=== PATIENT | male | born 1965 | race Caucasian/White ===

== ENCOUNTER 2020-02-11 21:06 | Observation (INO) | payer BC ==
[2020-02-11] MEDS ORDERED: ONDANSETRON HCL INJ/PF 4 MG/2 ML SDV IV ONE (21:23)
[2020-02-11] MEDS ORDERED: MORPHINE SULFATE 10 MG/ML INJ IV ONE (21:23)
[2020-02-11] MEDS ORDERED: NORMAL SALINE 500 ML IV ONE (21:23)
--- NOTE | 2020-02-11 21:25 | ER Document Report ---
ED Medical Screen (RME) - General Chief Complaint: Abdominal Pain Stated Complaint: ABDOMINAL PAIN,FLANK PAIN Time Seen by Provider: 02/11/20 21:19 Notes: HPI: 54-year-old male presenting to the emergency department for evaluation of right lower quadrant abdominal pain. No dysuria. No penile or testicular pain. No fever has had dry heaves. Pain began around 3 AM has progressively worsened throughout the day hurts to bend at the waist hurts to walk. No history of prior abdominal surgeries. I have greeted and performed a rapid initial assessment of this patient. A comprehensive ED assessment and evaluation of the patient, analysis of test results and completion of the medical decision making process will be conducted by additional ED providers PHYSICAL EXAMINATION: GENERAL: Well-appearing, well-nourished and in mild acute distress. HEAD: Atraumatic, normocephalic. EYES: sclera anicteric, conjunctiva are normal. ENT: Moist mucous membranes. NECK: Normal range of motion LUNGS: Normal work of breathing HEART: 2+ radial pulses bilaterally ABD: limited by positioning for exam in triage. Moderate tenderness over McBurney's point with rebound, positive Rovsing, positive heel balance EXTREMITIES: no pitting or edema. No cyanosis. NEUROLOGICAL: No focal neurological deficits. Moves all extremities spontaneously and on command. PSYCH: Normal mood, normal affect. SKIN: Warm, Dry, normal turgor, no rashes or lesions noted. - Related Data Allergies/Adverse Reactions: No Known Allergies Allergy (Verified 02/11/20 21:23) Past Medical History - Social History Chew tobacco use (# tins/day): No Frequency of alcohol use: Occasional Drug Abuse: None Physical Exam - Vital signs Vitals: Temp Pulse Resp BP Pulse Ox 98.2 F 86 16 139/85 H 96 02/11/20 21:11 02/11/20 21:11 02/11/20 21:11 02/11/20 21:11 02/11/20 21:11 Course - Vital Signs Vital signs: Temp Pulse Resp BP Pulse Ox 98.2 F 86 16 139/85 H 96 02/11/20 21:11 02/11/20 21:11 02/11/20 21:11 02/11/20 21:11 02/11/20 21:11
--- NOTE | 2020-02-11 21:47 | ER Document Report ---
ED GI/ - General Chief Complaint: Abdominal Pain Stated Complaint: ABDOMINAL PAIN,FLANK PAIN Time Seen by Provider: 02/11/20 21:30 Mode of Arrival: Ambulatory Information source: Patient Notes: Patient presents complaining of abdominal pain that started around 3:00 in the morning. Patient states pain is gradually started to worsen throughout the day. Patient complains of pain to the right lower side of abdomen that radiates around to right lateral side. Patient has had some nausea. Patient reports some right flank pain and change in urinary stream. Patient does complain of some chills. Patient reports decreased appetite. - HPI Patient complains to provider of: Abdominal pain, Flank pain. No: Vomiting Onset: This morning Timing/Duration: Gradual, Worse Pain Level: 3 Location: RLQ, Right flank Sexual history: Active Associated symptoms: Chills, Loss of appetite, Nausea. denies: Diarrhea, Dizzy, Urinary hesitancy, Urinary frequency, Urinary retention Exacerbated by: Denies Relieved by: Denies Similar symptoms previously: No Recently seen / treated by doctor: No - Related Data Allergies/Adverse Reactions: No Known Allergies Allergy (Verified 02/11/20 21:23) Past Medical History - General Information source: Patient - Social History Smoking Status: Never Smoker Chew tobacco use (# tins/day): No Frequency of alcohol use: Occasional Drug Abuse: None Occupation: Special needs patients Lives with: Family Family History: Reviewed & Not Pertinent Patient has suicidal ideation: No Patient has homicidal ideation: No - Medical History Medical History: Negative Past Surgical History: Reports: Hx Orthopedic Surgery Review of Systems - Review of Systems Constitutional: Chills EENT: No symptoms reported Cardiovascular: No symptoms reported. denies: Chest pain Respiratory: No symptoms reported. denies: Cough Gastrointestinal: Abdominal pain, Nausea. denies: Diarrhea, Vomiting Genitourinary: Flank pain. denies: Dysuria, Discharge, Frequency Male Genitourinary: No symptoms reported Musculoskeletal: Back pain Skin: No symptoms reported Hematologic/Lymphatic: No symptoms reported Neurological/Psychological: No symptoms reported Physical Exam - Vital signs Vitals: Temp Pulse Resp BP Pulse Ox 98.2 F 86 16 139/85 H 96 02/11/20 21:11 02/11/20 21:11 02/11/20 21:11 02/11/20 21:11 02/11/20 21:11 - General General appearance: Appears well, Alert In distress: None - HEENT Head: Normocephalic, Atraumatic Eyes: Normal Conjunctiva: Normal Nasal: Normal Mouth/Lips: Normal Mucous membranes: Normal Neck: Normal, Supple. No: Lymphadenopathy - Respiratory Respiratory status: No respiratory distress Chest status: Nontender Breath sounds: Normal. No: Rales, Rhonchi, Stridor, Wheezing Chest palpation: Normal - Cardiovascular Rhythm: Regular Heart sounds: S1 appreciated, S2 appreciated - Abdominal Inspection: Normal Distension: No distension Bowel sounds: Normal Tenderness: Tender - Suprapubic, right lower quadrant, right middle abdominal tenderness. No: Lundberg's sign Organomegaly: No organomegaly - Back Back: CVA tenderness - Right - Extremities General upper extremity: Normal inspection, Normal ROM General lower extremity: Normal inspection, Normal ROM - Neurological Neuro grossly intact: Yes Cognition: Normal Orientation: AAOx4 [place] Coma Scale Eye Opening: Spontaneous [place] Coma Scale Verbal: Oriented [place] Coma Scale Motor: Obeys Commands Kelsey Coma Scale Total: 15 - Psychological Associated symptoms: Normal affect, Normal mood - Skin Skin Temperature: Warm Skin Moisture: Dry Skin Color: Normal Course - Re-evaluation Re-evalutation: 02/11/20 23:[address] Childers who agrees to come and evaluate patient. - Vital Signs Vital signs: Temp Pulse Resp BP Pulse Ox 98.4 F 67 18 152/72 H 95 02/12/20 00:57 02/12/20 00:57 02/12/20 00:57 02/12/20 00:57 02/12/20 00:57 - Laboratory Result Diagrams: 02/11/20 22:18 02/11/20 22:18 Laboratory results interpreted by me: 02/11/20 02/11/20 02/11/20 22:18 22:18 22:18 WBC 17.0 H Seg Neuts % (Manual) 90 H Lymphocytes % (Manual) 5 L Abs Neuts (Manual) 15.3 H Glucose 139 H Urine Protein 30 H Urine Ketones 20 H Labs- Entire Visit 02/11/20 02/11/20 02/11/20 22:18 22:18 22:18 WBC 17.0 H RBC 5.35 Hgb 15.7 Hct 46.6 MCV 87 MCH 29.4 MCHC 33.7 RDW 13.1 Plt Count 212 Lymph % (Auto) Not Reportable [place] % (Auto) Not Reportable Eos % (Auto) Not Reportable Baso % (Auto) Not Reportable Absolute Neuts (auto) Not Reportable Absolute Lymphs (auto) Not Reportable Absolute Monos (auto) Not Reportable Absolute Eos (auto) Not Reportable Absolute Basos (auto) Not Reportable Total Counted 100 Seg Neutrophils % Not Reportable Seg Neuts % (Manual) 90 H Lymphocytes % (Manual) 5 L Monocytes % (Manual) 5 Eosinophils % (Manual) 0 Basophils % (Manual) 0 Abs Neuts (Manual) 15.3 H Abs Lymphs (Manual) 0.9 Abs Monocytes (Manual) 0.9 Absolute Eos (Manual) 0.0 Abs Basophils (Manual) 0.0 Toxic Granulation SLIGHT Platelet Comment ADEQUATE Sodium 137.4 Potassium 4.3 Chloride 100 Carbon Dioxide 27 Anion Gap 10 BUN 19 Creatinine 0.92 Est GFR ( Amer) > 60 Est GFR (MDRD) Non-Af > 60 Glucose 139 H Calcium 9.4 Total Bilirubin 0.8 Direct Bilirubin 0.1 Neonat Total Bilirubin Not Reportable Neonat Direct Bilirubin Not Reportable Neonat Indirect Bili Not Reportable AST 18 ALT 26 Alkaline Phosphatase 66 Total Protein 7.8 Albumin 4.6 Lipase 51.5 Urine Color YELLOW Urine Appearance CLEAR Urine pH 5.0 Ur Specific [place] 1.026 Urine Protein 30 H Urine Glucose (UA) NEGATIVE Urine Ketones 20 H Urine Blood NEGATIVE Urine Nitrite NEGATIVE Urine Bilirubin NEGATIVE Urine Urobilinogen NEGATIVE Ur Leukocyte Esterase NEGATIVE Urine WBC (Auto) 0 Urine RBC (Auto) 1 Urine Mucus (Auto) FEW Urine Ascorbic Acid NEGATIVE - Diagnostic Test Radiology reviewed: Reports reviewed Discharge - Discharge Clinical Impression: Appendicitis Qualifiers: Appendicitis type: acute appendicitis Acute appendicitis type: unspecified acute appendicitis type Qualified Code(s): K35.80 - Unspecified acute appendicitis Abdominal pain Qualifiers: Abdominal location: unspecified location Qualified Code(s): R10.9 - Unspecified abdominal pain Condition: Stable Disposition: ADMITTED INPATIENT Admitting Provider: Surgicalist Unit Admitted: Surgical Floor
[2020-02-11 22:37] LABS: HEMATOCRIT 46.6 % (37.9-51.0); HEMOGLOBIN 15.7 g/dL (13.5-17.0); MEAN CORPUSCULAR HEMOGLOBIN 29.4 pg (27.0-33.4); MEAN CORPUSCULAR HGB CONC 33.7 g/dL (32.0-36.0); MEAN CORPUSCULAR VOLUME 87 fl (80-97); PLATELET COUNT 212 10^3/uL (150-450); RED BLOOD COUNT 5.35 10^6/uL (4.35-5.55); RED CELL DISTRIBUTION WIDTH 13.1 % (11.5-14.0)
[2020-02-11 22:42] LABS: APPEARANCE,URINE CLEAR; BILIRUBIN,URINE NEGATIVE (NEGATIVE); COLOR,URINE YELLOW; GLUCOSE, URINE NEGATIVE (NEGATIVE); KETONES,URINE 20 mg/dL (NEGATIVE); LEUKOCYTE ESTERASE,URINE NEGATIVE (NEGATIVE); NITRITE,URINE NEGATIVE (NEGATIVE); PROTEIN,URINE 30 mg/dL (NEGATIVE); URINE SPECIFIC GRAVITY 1.026; UROBILINOGEN,URINE NEGATIVE mg/dL (<2.0)
[2020-02-11 22:51] LABS: ALBUMIN 4.6 g/dL (3.5-5.0); ALKALINE PHOSPHATASE 66 U/L (38-126); ANION GAP 10 (5-19); ASPARTATE AMINO TRANSFERASE 18 U/L (17-59); BILIRUBIN,DIRECT 0.1 mg/dL (0.0-0.4); BILIRUBIN,TOTAL 0.8 mg/dL (0.2-1.3); BLOOD UREA NITROGEN 19 mg/dL (7-20); CALCIUM 9.4 mg/dL (8.4-10.2); CARBON DIOXIDE 27 mmol/L (22-30); CHLORIDE 100 mmol/L (98-107); GLUCOSE 139 mg/dL (75-110); POTASSIUM 4.3 mmol/L (3.6-5.0); TOTAL PROTEIN 7.8 g/dL (6.3-8.2)
[2020-02-11 22:55] LABS: ABSOLUTE LYMPHOCYTES# (MANUAL) 0.9 10^3/uL (0.5-4.7); ABSOLUTE MONOCYTES # (MANUAL) 0.9 10^3/uL (0.1-1.4); BASOPHILS % (MANUAL) 0 % (0-2); EOSINOPHILS % (MANUAL) 0 % (0-6); LYMPHOCYTES % (MANUAL) 5 % (13-45); MONOCYTES % (MANUAL) 5 % (3-13); SEGMENTED NEUTROPHILS % (MAN) 90 % (42-78); TOTAL CELLS COUNTED 100
[2020-02-11 22:56] LABS: PLATELET COMMENT ADEQUATE; TOXIC GRANULATION SLIGHT
--- NOTE | 2020-02-11 23:34 | RADIOLOGY REPORT (SQ) ---
EXAM DESCRIPTION: CT ABDOMEN PELVIS WITH IV CONTRAST COMPLETED DATE/TME: 02/11/2020 21:23 CLINICAL HISTORY: 54 years, Male, Pt reports sudden sharp RLQ abdominal pain to Right lower back COMPARISON: None. TECHNIQUE: Contrast enhanced CT of the abdomen/pelvis was acquired. Images were obtained after the uneventful administration of 100 mL of Omnipaque 350 intravenous contrast. Images stored on PACS. All CT scanners at this facility use dose modulation, iterative reconstruction, and/or weight based dosing when appropriate to reduce radiation dose to as low as reasonably achievable (ALARA). [facility]: Dose Right [facility]: CareDose [facility]: Dose Right [facility]: Teradose 4D [facility]: Fangcang LIMITATIONS: None. FINDINGS: Limited evaluation of the lower chest reveals bands of opacity about both lower lobes and the lingula, indicating areas of atelectasis and/or scar. The liver, spleen, pancreas, gallbladder, and both adrenal glands appear normal. Both kidneys enhance symmetrically. No hydronephrosis or hydroureter. The urinary bladder is collapsed, thus its evaluation is limited. Small and large bowel appear normal in caliber. No areas of focal wall thickening. No evidence of obstruction. The appendix is dilated and fluid-filled measuring up to 9 mm in diameter. Associated periappendiceal inflammatory stranding is noted. No adjacent drainable fluid collections are appreciated. Vascular structures opacify with contrast normally. No suspicious lymphadenopathy is appreciated. No drainable fluid collections. Bone windows show no destructive osseous lesions. IMPRESSION: Findings are consistent with acute, uncomplicated appendicitis. TECHNICAL DOCUMENTATION: Quality ID # 436: Final reports with documentation of one or more dose reduction techniques (e.g., Automated exposure control, adjustment of the mA and/or kV according to patient size, use of iterative reconstruction technique) copyright 2010 [employer]- All Rights Reserved
[2020-02-11] MEDS ORDERED: PIPERACILLIN/TAZOBACTAM 3.375 GM VIAL IV ONE (23:56)
[2020-02-12] MEDS ORDERED: BUPIVACAINE HCL 0.25 % INJ/PF (2.5 MG/1 ML) 30 ML VIAL ONE (00:58)
[2020-02-12] MEDS ORDERED: ONDANSETRON HCL INJ/PF 4 MG/2 ML SDV ONE (01:08)
[2020-02-12] MEDS ORDERED: MIDAZOLAM 2 MG/2 ML INJ ONE (01:08)
[2020-02-12] MEDS ORDERED: LIDOCAINE 2% INJ-PF (20 MG/ML) 10 ML AMPUL ONE (01:08)
[2020-02-12] MEDS ORDERED: FENTANYL CITRATE INJ/PF 100 MCG/2 ML AMPUL ONE (01:08)
[2020-02-12] MEDS ORDERED: DEXAMETHASONE SOD PHOSPHATE INJ 4 MG/1 ML VIAL ONE (01:08)
[2020-02-12] MEDS ORDERED: HYDROMORPHONE HCL INJ/PF 2 MG/ML AMPULE ONE (01:08)
[2020-02-12] MEDS ORDERED: PROPOFOL INJ 200 MG/20 ML VIAL IV ONE (01:08)
[2020-02-12] MEDS ORDERED: OXYCODONE-ACETAMINOPHEN 5-325 MG TABLET PO PRN ×2 (01:58)
[2020-02-12] MEDS ORDERED: MEPERIDINE HCL/PF INJ 25 MG/1 ML DISP.SYRIN IV PRN (01:58)
[2020-02-12] MEDS ORDERED: DIPHENHYDRAMINE HCL 50 MG/ML VIAL IV PRN (01:58)
[2020-02-12] MEDS ORDERED: MORPHINE SULFATE 10 MG/ML INJ IV PRN ×2 (01:58→02:37)
[2020-02-12] MEDS ORDERED: FENTANYL CITRATE INJ/PF 100 MCG/2 ML AMPUL IV PRN ×3 (01:58)
[2020-02-12] MEDS ORDERED: PROMETHAZINE HCL INJ 25 MG/1 ML VIAL IV PRN ×2 (01:58)
[2020-02-12] MEDS ORDERED: ONDANSETRON HCL INJ/PF 4 MG/2 ML SDV IV PRN (02:37)
[2020-02-12] MEDS ORDERED: HYDROCODONE/ACETAMINOPHEN 10-325 MG TABLET PO PRN (02:40)
--- NOTE | 2020-02-12 02:45 | Operative Report ---
Nonrecallable Operative Report DATE OF SURGERY: 02/12/20 PREOPERATIVE DIAGNOSIS: Acute appendicitis POSTOPERATIVE DIAGNOSIS: Acute nonperforated appendicitis OPERATION: Laparoscopic appendectomy SURGEON: COMFORT DE SANTIAGO ANESTHESIA: GA TISSUE REMOVED OR ALTERED: Appendix COMPLICATIONS: None apparent ESTIMATED BLOOD LOSS: Minimal PROCEDURE: Drains/implants: None. Procedure in detail: After informed consent was obtained, the patient was brought into the operating room and laid in the supine position. The area of t he abdomen was prepped and draped in a normal sterile fashion. A supraumbilical incision was created with a 15 blade scalpel. Dissection was carried through the subcutaneous tissues using sharp and blunt dissection. The cicatrix was identified, grasped with a Lobo clamp, and retracted upwards. The linea alba fascia was incised sharply, the abdomen was entered sharply. The balloon trocar was inserted, and pneumoperitoneum was achieved. A suprapubic 5 mm trocar was placed under direct laparoscopic visualization, as well as a left lower quadrant trocar. Atraumatic graspers were placed through the 5 mm ports. The appendix was identified. It was injected and inflamed, consistent with acute appendicitis. It did not appear perforated. The appendix was elevated anteriorly. The mesoappendix was taken down using the harmonic scalpel. PDS Endoloops were secured around the base of the appendix x2. The appendix was amputated and placed into an Endo Catch bag. The appendix was then pulled out through the supraumbilical port. The camera was reinserted. The right lower quadrant was inspected. It was found to be hemostatic. The appendiceal stump was found to be in good order. Once this was confirmed, the 5 mm trochars were removed under direct laparoscopic visualization. The supraumbilical trocar was removed, and pneumoperitoneum was relieved. The supraumbilical fascia was closed using 0 Vicryl suture in [id number] fashion. The overlying skin was closed using 4-0 Vicryl Rapide suture in subcuticular fashion. Dressings were placed, and the procedure was concluded. All sponge, instrument, needle counts were correct x2. Condition: Stable.
[2020-02-12] MEDS ORDERED: PIPERACILLIN/TAZOBACTAM 3.375 GM VIAL IV PRN (03:14)
[2020-02-12] MEDS ORDERED: INFLUENZA QUAD (6MOS+) 2019-20 VAC 0.5 ML SYR IM ONE (03:56)
[2020-02-12] MEDS: PIPERACILLIN SODIUM/TAZOBACTAM 3.375 GM in NORMAL SALINE 100 ML IV SCH ×2 (05:15→14:15)
--- NOTE | 2020-02-12 06:35 | PDOC H&P ---
History of Present Illness Admission Date/PCP: 02/12/20 00:03 ALEXYS VILLAREAL MD Patient complains of: Right lower quadrant pain History of Present Illness: STAR MYERS is a 54 year old male with a 1 day history of sharp, stabbing right lower quadrant pain. The pain has worsened throughout the day. Patient has had associated nausea. He denies fevers or chills. He rates his pain as 5 out of 10. Nothing makes his pain better. Palpation and movement make his pain worse. His pain does not radiate. Currently, the patient denies chest pain, shortness of breath, headache, vomiting, dizziness, orthostasis, blurry vision, rash, malaise, or fatigue. Past Medical History Medical History: None Past Surgical History Past Surgical History: Reports: Orthopedic Surgery Social History Lives with: Family Smoking Status: Never Smoker Electronic Cigarette use?: No - Advance Directive Resuscitation Status: Full Code Family History Family History: Reviewed & Not Pertinent Parental Family History Reviewed: Yes Children Family History Reviewed: Yes Sibling(s) Family History Reviewed.: Yes Medication/Allergy Allergies/Adverse Reactions: No Known Allergies Allergy (Verified 02/11/20 21:23) Review of Systems Constitutional: ABSENT: anorexia, chills, fatigue, fever(s), headache(s) Eyes: ABSENT: visual disturbances Ears: ABSENT: hearing changes Nose, Mouth, and Throat: ABSENT: mouth pain, sore throat Cardiovascular: ABSENT: chest pain Respiratory: ABSENT: cough, dyspnea Gastrointestinal: PRESENT: abdominal pain, nausea. ABSENT: bloating, constipation, diarrhea, dysphagia, heartburn, hematemesis, hematochezia, melena, vomiting Genitourinary: ABSENT: difficulty urinating Musculoskeletal: ABSENT: back pain Integumentary: ABSENT: pruritus, rash Neurological: ABSENT: confusion, convulsions, dizziness Psychiatric: ABSENT: anxiety, depression Endocrine: ABSENT: cold intolerance, heat intolerance Hematologic/Lymphatic: ABSENT: easy bleeding, easy bruising Physical Exam Vital Signs: Temp Pulse Resp BP Pulse Ox 98.4 F 88 18 152/72 H 95 02/12/20 01:08 02/12/20 01:08 02/12/20 01:08 02/12/20 01:08 02/12/20 01:08 Intake & Output 02/10/20 02/11/20 02/12/20 06:59 06:59 06:59 Weight 103.1 kg General appearance: PRESENT: no acute distress, cooperative Head exam: PRESENT: atraumatic, normocephalic Eye exam: PRESENT: EOMI, PERRLA. ABSENT: scleral icterus Mouth exam: PRESENT: moist, neck supple Neck exam: ABSENT: meningismus, tenderness, thyromegaly, tracheal deviation Respiratory exam: PRESENT: clear to auscultation em, unlabored. ABSENT: chest wall tenderness, tachypnea, wheezes Cardiovascular exam: PRESENT: RRR Pulses: PRESENT: normal radial pulses Vascular exam: PRESENT: normal capillary refill GI/Abdominal exam: PRESENT: soft. ABSENT: distended, firm, guarding, tenderness Rectal exam: PRESENT: deferred Extremities exam: ABSENT: clubbing Musculoskeletal exam: ABSENT: deformity Neurological exam: PRESENT: alert, awake, oriented to person, oriented to place, oriented to time, oriented to situation, CN II-XII grossly intact Psychiatric exam: ABSENT: agitated, anxious, depressed Focused psych exam: ABSENT: delusional Skin exam: ABSENT: cyanosis, erythema, jaundice Results Laboratory Results: 02/11/20 22:18 02/11/20 22:18 02/11/20 02/11/20 02/11/20 22:18 22:18 22:18 WBC 17.0 H RBC 5.35 Hgb 15.7 Hct 46.6 MCV 87 MCH 29.4 MCHC 33.7 RDW 13.1 Plt Count 212 Seg Neutrophils % Not Reportable Sodium 137.4 Potassium 4.3 Chloride 100 Carbon Dioxide 27 Anion Gap 10 BUN 19 Creatinine 0.92 Est GFR ( Amer) > 60 Glucose 139 H Calcium 9.4 Total Bilirubin 0.8 AST 18 Alkaline Phosphatase 66 Total Protein 7.8 Albumin 4.6 Lipase 51.5 Urine Color YELLOW Urine Appearance CLEAR Urine pH 5.0 Ur Specific [place] 1.026 Urine Protein 30 H Urine Glucose (UA) NEGATIVE Urine Ketones 20 H Urine Blood NEGATIVE Urine Nitrite NEGATIVE Ur Leukocyte Esterase NEGATIVE Urine WBC (Auto) 0 Urine RBC (Auto) 1 Impressions: Abdomen/Pelvis CT 02/11/20 21:23 IMPRESSION: Findings are consistent with acute, uncomplicated appendicitis. TECHNICAL DOCUMENTATION: Quality ID # 436: Final reports with documentation of one or more dose reduction techniques (e.g., Automated exposure control, adjustment of the mA and/or kV according to patient size, use of iterative reconstruction technique) copyright 2011 [employer]- All Rights Reserved Assessment & Plan - Diagnosis (1) Appendicitis Qualifiers: Appendicitis type: acute appendicitis Acute appendicitis type: unspecified acute appendicitis type Qualified Code(s): K35.80 - Unspecified acute [place]ver[place] endicitis Is this a current diagnosis for this admission?: Yes - Plan Summary Plan Summary: This is a 54-year-old male with right lower quadrant pain, leukocytosis, and a CT scan consistent with appendicitis. The patient does have significant discomfort on physical examination. I have recommended appendectomy as definitive surgical treatment. The patient has agreed with this. Risks/benefits discussed, informed consent obtained, and all questions answered.
[2020-02-12] MEDS: IBUPROFEN 800 MG TABLET PO SCH ×2 (08:21→14:15)
[2020-02-12] MEDS ORDERED: NEOSTIGMINE METHYLSULFATE 10 MG/10 ML VIAL ONE (09:34)
[2020-02-12] MEDS ORDERED: GLYCOPYRROLATE 1 MG/5 ML VIAL ONE (09:34)
[2020-02-12] MEDS ORDERED: FAMOTIDINE 20 MG TABLET PO SCH (10:00)
[2020-02-12 10:13] VITALS: BP 148/88
--- NOTE | 2020-02-12 11:35 | PDOC DISCHARGE SUMMARY ---
General - Admit/Disc Date/PCP Admission Date/Primary Care Provider: 02/12/20 00:03 ALEXYS VILLAREAL MD Discharge Date: 02/12/20 - Discharge Diagnosis Final Diagnosis: Acute appendicitis - Assessment Summary: 54-year-old male admitted for right lower quadrant abdominal pains and noted to be compatible with acute appendicitis. Underwent laparoscopic appendectomy on the day of admission 02/10/2019 which he tolerated well. Today 02/11/2019 patient is doing well tolerating regular diet with minimal pains. He will be discharged today to be followed up in the surgical clinic in 2 weeks. - Additional Information Resuscitation Status: Full Code Discharge Diet: As Tolerated, Regular Discharge Activity: Activity As Tolerated, Balance Activity w/Rest Referrals: COMFORT DE SANTIAGO MD [ACTIVE STAFF] - 03/01/20 8:00 am ALEXYS VILLAREAL MD [Primary Care Provider] - 02/20/20 11:15 am Home Medications: Ibuprofen [Motrin 800 mg Tablet] 800 mg PO Q8HP PRN 02/12/20 History of Present Illiness History of Present Illness: STAR MYERS is a 54 year old male Physical Exam Vital Signs: Temp Pulse Resp BP Pulse Ox 98.4 F 88 18 148/88 H 93 02/12/20 10:11 02/12/20 10:11 02/12/20 10:11 02/12/20 10:11 02/12/20 10:11 Intake & Output 02/11/20 02/12/20 02/13/20 06:59 06:59 06:59 Intake Total 1572 Output Total 10 Balance 1562 Weight 102 kg Results Laboratory Results: WBC 17.0 10^3/uL (4.0-10.5) H 02/11/20 22:18 RBC 5.35 10^6/uL (4.35-5.55) 02/11/20 22:18 Hgb 15.7 g/dL (13.5-17.0) 02/11/20 22:18 Hct 46.6 % (37.9-51.0) 02/11/20 22:18 MCV 87 fl (80-97) 02/11/20 22:18 MCH 29.4 pg (27.0-33.4) 02/11/20 22:18 MCHC 33.7 g/dL (32.0-36.0) 02/11/20 22:18 RDW 13.1 % (11.5-14.0) 02/11/20 22:18 Plt Count 212 10^3/uL (150-450) 02/11/20 22:18 Lymph % (Auto) Not Reportable 02/11/20 22:18 [place] % (Auto) Not Reportable 02/11/20 22:18 Eos % (Auto) Not Reportable 02/11/20 22:18 Baso % (Auto) Not Reportable 02/11/20 22:18 Absolute Neuts (auto) Not Reportable 02/11/20 22:18 Absolute Lymphs (auto) Not Reportable 02/11/20 22:18 Absolute Monos (auto) Not Reportable 02/11/20 22:18 Absolute Eos (auto) Not Reportable 02/11/20 22:18 Absolute Basos (auto) Not Reportable 02/11/20 22:18 Total Counted 100 02/11/20 22:18 Seg Neutrophils % Not Reportable 02/11/20 22:18 Seg Neuts % (Manual) 90 % (42-78) H 02/11/20 22:18 Lymphocytes % (Manual) 5 % (13-45) L 02/11/20 22:18 Monocytes % (Manual) 5 % (3-13) 02/11/20 22:18 Eosinophils % (Manual) 0 % (0-6) 02/11/20 22:18 Basophils % (Manual) 0 % (0-2) 02/11/20 22:18 Abs Neuts (Manual) 15.3 10^3/uL (1.7-8.2) H 02/11/20 22:18 Abs Lymphs (Manual) 0.9 10^3/uL (0.5-4.7) 02/11/20 22:18 Abs Monocytes (Manual) 0.9 10^3/uL (0.1-1.4) 02/11/20 22:18 Absolute Eos (Manual) 0.0 10^3/uL (0.0-0.6) 02/11/20 22:18 Abs Basophils (Manual) 0.0 10^3/uL (0.0-0.2) 02/11/20 22:18 Toxic Granulation SLIGHT 02/11/20 22:18 Platelet Comment ADEQUATE 03/18/20 22:18 Sodium 137.4 mmol/L (137-145) 02/11/20 22:18 Potassium 4.3 mmol/L (3.6-5.0) 02/11/20 22:18 Chloride 100 mmol/L (98-107) 02/11/20 22:18 Carbon Dioxide 27 mmol/L (22-30) 02/11/20 22:18 Anion Gap 10 (5-19) 02/11/20 22:18 BUN 19 mg/dL (7-20) 02/11/20 22:18 Creatinine 0.92 mg/dL (0.52-1.25) 02/11/20 22:18 Est GFR ( Amer) > 60 (>60) 02/11/20 22:18 Est GFR (MDRD) Non-Af > 60 (>60) 02/11/20 22:18 Glucose 139 mg/dL (75-110) H 02/11/20 22:18 Calcium 9.4 mg/dL (8.4-10.2) 02/11/20 22:18 Total Bilirubin 0.8 mg/dL (0.2-1.3) 02/11/20 22:18 Direct Bilirubin 0.1 mg/dL (0.0-0.4) 02/11/20 22:18 Neonat Total Bilirubin Not Reportable 02/11/20 22:18 Neonat Direct Bilirubin Not Reportable 02/11/20 22:18 Neonat Indirect Bili Not Reportable 02/11/20 22:18 AST 18 U/L (17-59) 02/11/20 22:18 ALT 26 U/L (<50) 02/11/20 22:18 Alkaline Phosphatase 66 U/L (38-126) 02/11/20 22:18 Total Protein 7.8 g/dL (6.3-8.2) 02/11/20 22:18 Albumin 4.6 g/dL (3.5-5.0) 02/11/20 22:18 Lipase 51.5 U/L (23-300) 02/11/20 22:18 Urine Color YELLOW 02/11/20 22:18 Urine Appearance CLEAR 02/11/20 22:18 Urine pH 5.0 (5.0-9.0) 02/11/20 22:18 Ur Specific [place] 1.026 02/11/20 22:18 Urine Protein 30 mg/dL (NEGATIVE) H 02/11/20 22:18 Urine Glucose (UA) NEGATIVE mg/dL (NEGATIVE) 02/11/20 22:18 Urine Ketones 20 mg/dL (NEGATIVE) H 02/11/20 22:18 Urine Blood NEGATIVE (NEGATIVE) 02/11/20 22:18 Urine Nitrite NEGATIVE (NEGATIVE) 02/11/20 22:18 Urine Bilirubin NEGATIVE (NEGATIVE) 02/11/20 22:18 Urine Urobilinogen NEGATIVE mg/dL (<2.0) 02/11/20 22:18 Ur Leukocyte Esterase NEGATIVE (NEGATIVE) 02/11/20 22:18 Urine WBC (Auto) 0 /HPF 02/11/20 22:18 Urine RBC (Auto) 1 /HPF 02/11/20 22:18 Urine Mucus (Auto) FEW /LPF 02/11/20 22:18 Urine Ascorbic Acid NEGATIVE (NEGATIVE) 02/11/20 22:18 Impressions: Abdomen/Pelvis CT 02/11/20 21:23 IMPRESSION: Findings are consistent with acute, uncomplicated appendicitis. TECHNICAL DOCUMENTATION: Quality ID # 436: Final reports with documentation of one or more dose reduction techniques (e.g., Automated exposure control, adjustment of the mA and/or kV according to patient size, use of iterative reconstruction technique) copyright 2011 [employer]- All Rights Reserved
== END 2020-02-12 14:00 | disposition home or self-care (01) ==
LOC: ER 21:06 → EH 02-12 00:03 → INTOOBSV 02-12 00:03 → 3N 02-12 03:20
PROVIDERS: ATTEND Surgery
DX: K35.80 Unspecified acute appendicitis (principal); M54.9 Dorsalgia, unspecified
CPT/HCPCS: 99285; 36415; 83690; 85025; 80053; 81001; 88304 ×2; 74177; 94799; 44970; G0378; J2250; J1100; J3010; J2710; J1170; J2405; J7050; J7040; J2704; J3490 ×2; J2543